=== PATIENT | male | born 1985 | race Caucasian/White ===

== ENCOUNTER → 2016-07-22 | Outpatient (REF) | payer OTHER ==
--- NOTE | 2016-07-22 16:42 | Diagnostic Imaging Report ---
INDICATION: Right ankle pain. TECHNIQUE: AP, oblique, and lateral views of the right ankle were obtained. FINDINGS: There is an acute oblique fracture of the distal fibula extending to the ankle joint. There is no significant malalignment or displacement. The tibia and talus are intact. IMPRESSION: Acute nondisplaced oblique fracture of the distal fibula. Report was called to parachute taper for Mirtha Justin APRN at 4:38 p.m., by zander (for [employer]). Malika asked that she take the verbal report from me. Dictated by: Dictated on workstation # [id number]
--- NOTE | 2016-07-22 18:31 | Diagnostic Imaging Report ---
INDICATION: Injury to right tibia and fibula AP and lateral views of the right tibia and fibula are obtained. There is an oblique fracture of the distal fibula at the level of ankle joint. There is no significant displacement. The tibia appears intact. IMPRESSION: Nondisplaced distal fibular fracture at the level of ankle joint. See separate dictation for right ankle. No other abnormal finding. Dictated by: Dictated on workstation # [id number]
== END ==
LOC: RAD 15:24
PROVIDERS: ATTEND Nurse Practitioner Family
DX: M25.571 Pain in right ankle and joints of right foot (principal); M25.561 Pain in right knee; S82.831A Other fracture of upper and lower end of right fibula, initial encounter for closed fracture; X58.XXXA Exposure to other specified factors, initial encounter
CPT/HCPCS: 73590; 73610